=== PATIENT | female | born 2000 | race Caucasian/White ===

== ENCOUNTER 2022-10-31 01:11 | Emergency (ER) | payer MEDICAID ==
[~2022-10-31] VITALS: Ht 162.6 cm; Wt 81.8 kg
[2022-10-31] MEDS ORDERED: SODIUM CHLORIDE 0.9% 250 ML IRRIG SOLUTION BOTTLE IRRIG ONE (01:30)
[2022-10-31] MEDS ORDERED: LIDOCAINE 1% 10 ML VIAL ID ONE (01:30)
[2022-10-31 01:55] VITALS: BP 133/64
== END 2022-10-31 02:32 | disposition home or self-care (01) ==
LOC: EMS 01:12
DX: S71.111A Laceration without foreign body, right thigh, initial encounter (principal); W26.8XXA Contact with other sharp object(s), not elsewhere classified, initial encounter; Y93.89 Activity, other specified; Y92.89 Other specified places as the place of occurrence of the external cause; Y99.8 Other external cause status
CPT/HCPCS: 99282; 12002; J3490

== ENCOUNTER 2022-11-07 16:06 | Emergency (ER) | payer MEDICAID ==
[~2022-11-07] VITALS: Ht 157.5 cm; Wt 86.4 kg
[2022-11-07 16:28] VITALS: BP 106/60
== END 2022-11-07 16:44 | disposition home or self-care (01) ==
LOC: EMS 16:06
DX: S71.111D Laceration without foreign body, right thigh, subsequent encounter (principal); X58.XXXD Exposure to other specified factors, subsequent encounter
CPT/HCPCS: 99281; Z7502

== ENCOUNTER 2024-06-21 21:44 | Emergency (ER) | payer MEDICAID ==
[~2024-06-21] VITALS: Ht 157.5 cm; Wt 90.9 kg
[2024-06-21 21:45] VITALS: TEMP 97.6
[2024-06-21] MEDS ORDERED: IBUP-45 PO (21:49)
[2024-06-22] VITALS: BP 124/74; PULSE 65; RESP 16
[2024-06-22] MEDS ORDERED: TRAM50TA5 PO (01:28)
[2024-06-22] MEDS ORDERED: AMOX250C4 PO (01:28)
[2024-06-22] MEDS: AMOXICILLIN TRIHYDRATE 250 MG CAPSULE PO ONE (01:33)
[2024-06-22] MEDS: TraMADol HCL 50 MG TABLET PO ONE (01:34)
[2024-06-22] MEDS: KETOROLAC TROMETHAMINE 30 MG/ML VIAL IM ONE (01:34)
[2024-06-22 01:47] LABS: APPEARANCE,URINE HAZY (CLEAR); BILIRUBIN,URINE NEGATIVE (NEGATIVE); COLOR,URINE YELLOW (YELLOW); GLUCOSE, URINE (UA) NEGATIVE (NEGATIVE); KETONES,URINE NEGATIVE (NEGATIVE); LEUKOCYTE ESTERASE ,URINE MODERATE (NEGATIVE); NITRATE,URINE POSITIVE (NEGATIVE); OCCULT BLOOD,URINE SMALL (NEGATIVE); PH,URINE 6.5 (5.0-8.0); PROTEIN,URINE TRACE mg/dL (NEGATIVE); SPECIFIC GRAVITIY, URINE 1.029 (1.003-1.030); UROBILINOGEN,URINE <=1.0 mg/dL (<=1.0)
[2024-06-22 01:50] LABS: BACTERIA,URINE Moderate /HPF (None Seen); RBC,URINE 0-2 /HPF (0-2); SQUAMOUS EPITHELIAL CELL,UR Few /LPF (None Seen)
[2024-06-22 01:52] LABS: HCG,QUAL URINE NEGATIVE (NEGATIVE)
== END 2024-06-22 01:59 | disposition home or self-care (01) ==
LOC: EMS 21:44
DX: K02.9 Dental caries, unspecified (principal)
CPT/HCPCS: 99283; 81001; 84703; 87086; 87186; 96372; J1885